=== PATIENT | female | born 1985 | race Hispanic/Latino ===

== ENCOUNTER 2018-01-29 23:43 | Emergency (ER) | payer MEDICAID ==
[2018-01-29 23:59] VITALS: RESP 16; O2SAT 100
[2018-01-30] MEDS ORDERED: Lidocaine 5% Patch TD STA (00:24)
[2018-01-30] MEDS ORDERED: Oxycodone/Acetaminophen 5/325 mg Tab PO STA (00:24)
[2018-01-30] MEDS ORDERED: Lidocaine 5% Patch TD ONE (00:53)
[2018-01-30] MEDS ORDERED: Oxycodone/Acetaminophen 5/325 mg Tab ONE (00:53)
--- NOTE | 2018-01-30 01:20 | ED PDOC ---
HPI: Back Time Seen by Provider: 01/29/18 23:57 Chief Complaint (Nursing): Lower Extremity Problem/Injury History Per: Patient Additional Complaint(s): Pt. states on Friday she attempted to carry a 50lb object from above her head and shortly after she developed mild lower back pain. Pt. states yesterday morning she woke up and pain worsened. Reports pain radiates down the L leg. Pain is worse with movement. States she has a hx of radicular pain in the lumbar area for which she sees a neurologist but has never had any surgery. Denies dysuria, hematuria, incontinence, N/V, abd pain, fever. Of note, pt. has not used any meds at home to help relieve symptoms. Past Medical History Reviewed: Historical Data, Nursing Documentation, Vital Signs Vital Signs: Last Vital Signs Temp 98.4 F 01/29/18 23:57 Pulse 70 01/29/18 23:57 Resp 16 01/29/18 23:57 BP 106/71 01/29/18 23:57 Pulse Ox 100 01/29/18 23:57 - Surgical History Surgical History: No Surg Hx - Family History Family History: States: No Known Family Hx - Home Medications Home Medications: Ambulatory Orders Medication Instructions Recorded Cyclobenzaprine [Cyclobenzaprine 10 mg PO Q8 PRN #10 tab 01/30/18 HCl] Lidocaine 5% [Lidoderm] 1 ea TD DAILY PRN #5 patch 01/30/18 Tramadol HCl [Ultram] 50 mg PO BID PRN #10 tablet 01/30/18 - Allergies Allergies/Adverse Reactions: Allergies Allergy/AdvReac Type Severity Reaction Status Date / Time Gadolinium-Containing Allergy RASH Verified 01/30/18 00:12 Contrast Medi nickel Allergy RASH Verified 01/30/18 00:12 NSAIDS (Non-Steroidal AdvReac NAUSEA Verified 01/29/18 23:59 Anti-Inflamma Review of Systems ROS Statement: Except As Marked, All Systems Reviewed And Found Negative Musculoskeletal: Positive for: Back Pain Physical Exam - Physical Exam Appears: Positive for: Well, Non-toxic, In Acute Distress (moderate painful distress) Skin: Positive for: Normal Color, Warm. Negative for: Rash Eye Exam: Positive for: Normal appearance Cardiovascular/Chest: Positive for: Regular Rate, Rhythm Respiratory: Positive for: CNT, Normal Breath Sounds Gastrointestinal/Abdominal: Positive for: Soft. Negative for: Tenderness Back: Positive for: Normal Inspection, Muscle Spasm (b/l paralumbar muscle spasm). Negative for: L CVA Tenderness, R CVA Tenderness, Vertebral Tenderness (throughout entire spine) Extremity: Positive for: Other Neurologic/Psych: Positive for: Alert, Oriented (x3). Negative for: Aphasia, Facial Droop - Laboratory Results Urine POC: Negative Urine dip results: Positive for: Blood (small). Negative for: Leukocyte Esterase, Nitrate, Ketones, Glucose, Bilirubin, Protein - ECG O2 Sat by Pulse Oximetry: 100 - Radiology X-Ray: Interpreted by Me (LS spine x-ray) X-Ray Interpretation: No Acute Disease - Progress ED Course And Treament: Toradol 30mg IM, flexeril 10mg PO, lidoderm patch, percocet 1 tab PO, LS spine x-ray ordered. Pt. states she has a hx of gastritis that is why she says she is allergic to NSAIDs. States she has taken Motrin and Aleve in the past without any rash or throat swelling developing. 0311 On re-evaluation, pt. sleeping comfortably. Easily arousable. Pain has improved. B/L lower extremity strength 5/5. Pt. informed of results and advised to f/u with her neurologist for possible MRI but is to return to ED immediately if symptoms worsen. Pt. searched on [place] [employer] and last narcotic Rx given was on 03/2017 for valium in [place]. Disposition - Clinical Impression Clinical Impression: Sciatica - Patient ED Disposition Is Patient to be Admitted: No - Disposition Referrals: [facility] [Outside] Hunter Chapman III, MD [Staff Provider] - Valorie Bruno MD [Medical Doctor] - Disposition: Routine/Home Disposition Time: 03:16 Condition: IMPROVED Additional Instructions: FOLLOW UP WITH YOUR NEUROLOGIST FOR FURTHER EVALUATION RETURN TO ED IMMEDIATELY IF SYMPTOMS WORSEN [place], thank you for letting us take care of you today. Your provider was Raymon Philip MD and you were treated for LOWER BACK PAIN. The emergency medical care you received today was directed at your acute symptoms. If you were prescribed any medication, please fill it and take as directed. It may take several days for your symptoms to resolve. Return to the Emergency Department if your symptoms worsen, do not improve, or if you have any other problems. Please contact your doctor or call one of the physicians/clinics you have been referred to that are listed on the Patient Visit Information form that is included in your discharge packet. Bring any paperwork you were given at discharge with you along with any medications you are taking to your follow up visit. Our treatment cannot replace ongoing medical care by a primary care provider outside of the emergency department. Thank you for allowing the [facility] team to be part of your care today. If you had an X-Ray or CT scan: A Radiologist will review the ED reading if any change in treatment is needed we will contact you. If you had a blood, urine, or wound culture: It will take several days for the results, if any change in treatment is needed we will contact you. If you had an STI test: It will take 48 hours for the results. Please call after 1 week if you have not heard back. Prescriptions: Cyclobenzaprine [Cyclobenzaprine HCl] 10 mg PO Q8 PRN #10 tab PRN Reason: Muscle Spasm Lidocaine 5% [Lidoderm] 1 ea TD DAILY PRN #5 patch PRN Reason: pain Tramadol HCl [Ultram] 50 mg PO BID PRN #10 tablet PRN Reason: Pain Instructions: Sciatica (DC) Forms: [employer] ([place]), [facility] ED School/Work Excuse
[2018-01-30 06:19] VITALS: BP 112/72; PULSE 75; TEMP 98.2
--- NOTE | 2018-01-30 14:12 | RAD ---
Date of service: 01/30/2018 PROCEDURE: Radiographs of the Lumbar Spine. HISTORY: pain COMPARISON: No prior. FINDINGS: BONES: Normal alignment. No listhesis. No fracture. DISC SPACES: Unremarkable. OTHER FINDINGS: None. IMPRESSION: Unremarkable radiographs of the lumbar spine.
== END 2018-01-30 05:15 | disposition home or self-care (01) ==
LOC: H.ER 23:43
DX: M54.32 Sciatica, left side (principal)
CPT/HCPCS: 72100; 96372; 99283; J1885